=== PATIENT | female | born 1970 | race African-American/Black ===

== ENCOUNTER → 2017-08-23 | Outpatient (CLI) | payer OTHER ==
--- NOTE | 2017-08-23 17:32 | WOMENS IMAGING REPORT ---
EXAM DESCRIPTION: BILAT SCREENING MAMMO W/CAD COMPLETED DATE/TIME: 08/23/2017 10:38 am REASON FOR STUDY: SCREENING MAMMO Z12.31 ENCNTR SCREEN MAMMOGRAM FOR MALIGNANT NEOPLASM OF BAMBI COMPARISON: 2014 TECHNIQUE: Standard craniocaudal and mediolateral oblique views of each breast recorded using digita l acquisition. LIMITATIONS: None. FINDINGS: No masses, calcifications or architectural distortion. No areas of suspicion. Read with the assistance of CAD. .[facility] - R2 Cenova Version 1.3 .[facility] - R2 Cenova Version 1.3 .[facility] - R2 Cenova Version 2.4 .[facility] - R2 Cenova Version 2.4 .[facility] - R2 Chief Librarian Extension Department Version 9.2 IMPRESSION: NORMAL MAMMOGRAM. BIRADS 1. BREAST DENSITY: c. The breasts are heterogeneously dense, which may obscure small masses. BIRAD: 1 NEGATIVE RECOMMENDATION: ROUTINE SCREENING Please continue yearly bilateral screening mammography in August 2018. Because of heterogeneously dense tissue, please consider bilateral screening tomosynthesis. COMMENT: The patient has been notified of the results by letter per SA requirements. Additional no tification policies are in place for contacting patient with suspicious or incomplete findings. Quality ID #225: The [employer] recommends an annual screening mammogram for women aged 40 years or over. This facility utilizes a reminder system to ensure that all patients receive reminder letters, and/or direct phone calls for appointments. This includes reminders for routine scr eening mammograms, diagnostic mammograms, or other Breast Imaging Interventions when appropriate. Th is patient will be placed in the appropriate reminder system. The [employer] (ACR) has developed recommendations for screening MRI of the breast s in certain patient populations, to be used in conjunction with mammography. Breast MRI surveillanc e may be appropriate for women with more than 20% lifetime risk of developing breast cancer as deter mined by genetic testing, significant family history of the disease, or history of mantle radiation f or Hodgkins Disease. ACR Practice Guidelines 2008. TECHNICAL DOCUMENTATION: FINDING NUMBER: (1) ASSESSMENT: (1) JOB ID: [id number] [employer]- All Rights Reserved Reading location - IP/workstation name: [facility]
== END ==
LOC: WI 08:25
PROVIDERS: ATTEND Obstetrics & Gynecology Gynecology
DX: Z12.31 Encounter for screening mammogram for malignant neoplasm of breast (principal)
CPT/HCPCS: 77067

== ENCOUNTER → 2018-10-10 | Outpatient (CLI) | payer OTHER ==
--- NOTE | 2018-10-10 10:54 | WOMENS IMAGING REPORT ---
EXAM DESCRIPTION: BILAT SCREENING MAMMO W/CAD COMPLETED DATE/TIME: 10/10/2018 9:57 am REASON FOR STUDY: Z12.31 ROUTINE BILATERAL [id number] ENCNTR SCREEN MAMMOGRAM FOR MALIGNANT NE OPLASM OF BAMBI COMPARISON: 2014, 2017 EXAM PARAMETERS: Standard craniocaudal and mediolateral oblique views of each breast recorded using digital acquisition. Read with the assistance of CAD. .[facility] - Systems Integration Setup Technician Version 9.2 LIMITATIONS: None. FINDINGS: RIGHT BREAST MASSES: No suspicious masses. CALCIFICATIONS: No new or suspicious calcifications. ARCHITECTURAL DISTORTION: None. DEVELOPING DENSITY: Developing density upper outer quadrant. Posterior 3rd approximately 12 cm from the nipple ASYMMETRY: None noted. OTHER: No other significant findings. LEFT BREAST MASSES: No suspicious masses. CALCIFICATIONS: No new or suspicious calcifications. ARCHITECTURAL DISTORTION: None. DEVELOPING DENSITY: None. ASYMMETRY: None noted. OTHER: No other significant findings. IMPRESSION: Developing density in the right breast 0 Incomplete: Needs Additional Imaging Evaluation and/or prior Mammograms for Comparison. BREAST DENSITY: c. The breasts are heterogeneously dense, which may obscure small masses. BIRAD: ASSESSMENT: 0 Incomplete: Needs Additional Imaging Evaluation and/or prior Mammograms for C omparison. RECOMMENDATION: RECOMMENDED FOLLOW-UP: Spot compression with ultrasound if indicated. The patient will be contacted for additional imaging. COMMENT: The patient has been notified of the results by letter per SA requirements. Additional no tification policies are in place for contacting patient with suspicious or incomplete findings. Quality ID #225: The [employer] recommends an annual screening mammogram for women aged 40 years or over. This facility utilizes a reminder system to ensure that all patients receive reminder letters, and/or direct phone calls for appointments. This includes reminders for routine scr eening mammograms, diagnostic mammograms, or other Breast Imaging Interventions when appropriate. Th is patient will be placed in the appropriate reminder system. TECHNICAL DOCUMENTATION: FINDING NUMBER: (1) ASSESSMENT: (1) JOB ID: [id number] Spot compression with ultrasound if indicated. 2010 [employer]- All Rights Reserved Reading location - IP/workstation name: [email or web address]
== END ==
LOC: WI 09:42
PROVIDERS: ATTEND Specialist
DX: Z12.31 Encounter for screening mammogram for malignant neoplasm of breast (principal); R92.2 Inconclusive mammogram
CPT/HCPCS: 77067

== ENCOUNTER → 2018-10-24 | Outpatient (CLI) | payer OTHER ==
--- NOTE | 2018-10-24 12:22 | WOMENS IMAGING REPORT ---
EXAM DESCRIPTION: RIGHT DIAGNOSTIC MAMMO W/CAD; U/S BREAST UNILAT LIMITED COMPLETED DATE/TIME: 10/24/2018 10:31 am; 10/24/2018 11:09 am REASON FOR STUDY: N63.11 UNSPECIFIED LUMP IN THE RIGHT BREAST, UPPER OUTER QUADRANT; N63.11 RIGHT BR EAST COMPARISON: 10/10/2018. 2012. TECHNIQUE: Spot compression CC, XCC, MLO. Non spot compressed true lateral. Targeted right breast ultrasound. LIMITATIONS: None. FINDINGS: BREAST: Right MASSES: Upper outer quadrant ill-defined mass in the region of interest. Spot compression imaging sh ows persistent abnormality. See ultrasound. CALCIFICATIONS: No new or suspicious calcifications. ARCHITECTURAL DISTORTION: None. DEVELOPING DENSITY: None. ASYMMETRY: None noted. OTHER: No other significant findings. Ultrasound: At approximately 10- 11 o'clock 12 cm from the nipple there is a hypoechoic 1.7 cm rough ly ovoid but somewhat ill marginated mass with possible associated calcifications. No Doppler detect able blood flow, but the lesion has suspicious features. IMPRESSION: Lesion in the upper outer right breast quadrant has suspicious features. Recommend ultr asound-guided biopsy. BREAST DENSITY: Heterogeneous; 50-75% fibroglandular tissue. May lower sensitivity of mammography. BIRAD: 4 Suspicious. Needing intervention but with a low suspicion for malignancy. Biopsy should be performed in the absence of clinical contra-indication. COMMENT: PATIENT NOTIFIED BY LETTER. The [employer] (ACR) has developed recommendations for screening MRI of the breast s in certain patient populations, to be used in conjunction with mammography. Breast MRI surveillanc e may be appropriate for women with more than 20% lifetime risk of developing breast cancer as deter mined by genetic testing, significant family history of the disease, or history of mantle radiation f or Hodgkins Disease. ACR Practice Guidelines 2008. FINDING NUMBER: (1) Reading location - IP/workstation name: [email or web address]
== END ==
LOC: WI 10:08
PROVIDERS: ATTEND Specialist
DX: N63.11 Unspecified lump in the right breast, upper outer quadrant (principal)
CPT/HCPCS: 76642

== ENCOUNTER 2018-12-13 09:58 | Day surgery (SDC) | payer OTHER ==
[~2018-12-13 09:58] MED LIST: CEFAZOLIN 1 GM/D5W RTU 1 GM/50 ML RTUPB IV PRN
[2018-12-13] MEDS ORDERED: CEFAZOLIN 1 GM/D5W RTU 1 GM/50 ML RTUPB IV ONE (10:11)
[2018-12-13] MEDS ORDERED: MICROFIBRILLAR COLLAGEN 1 GM PACK ONE (10:26)
[2018-12-13] MEDS ORDERED: LIDOCAINE 1%/EPINEPHRINE INJ 20 ML VIAL ONE (10:26)
[2018-12-13] MEDS ORDERED: FENTANYL CITRATE INJ/PF 100 MCG/2 ML AMPUL ONE (10:36)
[2018-12-13] MEDS ORDERED: PROPOFOL INJ 200 MG/20 ML VIAL IV ONE (10:37)
[2018-12-13] MEDS ORDERED: MIDAZOLAM 2 MG/2 ML INJ ONE (10:37)
[2018-12-13 11:01] LABS: HEMATOCRIT 41.5 % (36.0-47.0); HEMOGLOBIN 13.8 g/dL (12.0-15.5); MEAN CORPUSCULAR HEMOGLOBIN 25.7 pg (27.0-33.4); MEAN CORPUSCULAR HGB CONC 33.2 g/dL (32.0-36.0); MEAN CORPUSCULAR VOLUME 77 fl (80-97); RED BLOOD COUNT 5.38 10^6/uL (3.72-5.28); RED CELL DISTRIBUTION WIDTH 14.8 % (11.5-14.0); WHITE BLOOD COUNT 7.2 10^3/uL (4.0-10.5)
[2018-12-13] MEDS ORDERED: KETOROLAC TROMETHAMINE 60 MG/2 ML SDV ONE (11:14)
[2018-12-13] MEDS ORDERED: SUCCINYLCHOLINE CHLORIDE INJ 200 MG/10 ML VIAL ONE (11:14)
[2018-12-13] MEDS ORDERED: ONDANSETRON HCL INJ/PF 4 MG/2 ML SDV ONE (11:14)
[2018-12-13] MEDS ORDERED: ROCURONIUM BROMIDE INJ 50 MG/5 ML VIAL IV ONE (11:14)
[2018-12-13 11:28] LABS: PLATELET COUNT 176 10^3/uL (150-450)
[2018-12-13] MEDS ORDERED: ONDANSETRON HCL INJ/PF 4 MG/2 ML SDV IV PRN (12:19)
[2018-12-13] MEDS ORDERED: DIPHENHYDRAMINE HCL 50 MG/ML VIAL IV PRN (12:19)
[2018-12-13] MEDS ORDERED: MEPERIDINE HCL/PF INJ 25 MG/1 ML DISP.SYRIN IV PRN (12:19)
[2018-12-13] MEDS ORDERED: MORPHINE SULFATE 10 MG/ML INJ IV PRN (12:19)
[2018-12-13] MEDS ORDERED: OXYCODONE-ACETAMINOPHEN 5-325 MG TABLET PO PRN ×3 (12:19→12:58)
[2018-12-13] MEDS ORDERED: FENTANYL CITRATE INJ/PF 100 MCG/2 ML AMPUL IV PRN ×3 (12:19)
[2018-12-13] MEDS ORDERED: PROMETHAZINE HCL INJ 25 MG/1 ML VIAL IV PRN (12:19)
--- NOTE | 2018-12-13 12:58 | Discharge Summary ---
Discharge Summary (SDC) - Discharge Final Diagnosis: Fibroadenoma Date of Surgery: 12/13/18 Discharge Date: 12/13/18 Condition: Good Treatment or Instructions: [facility] [address] [place] [address] Care Instructions Following Your Lumpectomy Activities: Resume normal activities when you feel comfortable. It is best to remain as active as possible to speed your recovery. It is common to experience some fatigue after surgery and you may find that short naps are helpful. Avoid strenuous activity such as weight lifting, tennis, etc at your surgical site for two weeks. Perform gentle arm exercises daily and do not favor your operative arm to due increased risk of mobility issues postoperatively. No driving for 7 days after surgery. Do not drive if you are taking pain medication other than Tylenol or Ibuprofen. No swimming, tub baths or soaking in a hot tub for 4 weeks. There are no dietary restrictions. Do not smoke as this impairs wound healing. Surgical Site care: You may shower 24 hours after surgery to include washing the wound with soap and water using your hands. Do not scrub the incision. Leave skin glue intact. Pat the area dry with a towel. You do not need to recover the wound although some patients find that they feel more comfortable using a light dressing for a few days to absorb any minimal drainage which may occur. Do not use heating pad or apply an ice pack to the operative site. You may apply deodorant if you are careful to avoid getting it on the wound itself. Medications: Take Toradol 10mg one pill by mouth every 6 hours as needed for pain. Do not take additional NSAIDs with the Toradol such as: ibuprofen, goodies powder, aleve. You may take Tylenol with the Toradol. Resume all of your normal prescription medications after your surgery unless instructed otherwise. Follow-up: Call our office at to make a follow-up appointment in 10-14 days. Your doctor will call to discuss the pathology report with you as soon as it is available. Concerns: Some bruising may occur and will go away over time. If you have a fever of 101.5 or greater, chills, redness at the incision site, excessive drainage from your wound or severe pain not relieved by pain medication, call your doctor. A physician is available 24 hours a day 7 days a week in addition to regular office hours. If problems arise after normal office hours please call the hospital at . Please call if you have any questions or concerns. Prescriptions: Ketorolac Tromethamine [Toradol 10 mg Tablet] 10 mg PO Q6HP PRN #20 tablet PRN Reason: Referrals: JAYJAY RO PA [Primary Care Provider] - Discharge Diet: As Tolerated Discharge Activity: Balance Activity w/Rest, No Lifting/Push/Pulling, Walk Frequently Report the Following to Your Physician Immediately: Nausea, Vomiting, Increase in Pain, Fever over 101 Degrees, Unusual Bleeding, Redness, Swelling, Warmth, Increased Soreness, Drainage-Foul Smelling
--- NOTE | 2018-12-13 12:58 | Operative Report ---
Operative Report DATE OF SURGERY: 12/13/18 PREOPERATIVE DIAGNOSIS: Fibroadenoma right breast status post core biopsy clip marker placement POSTOPERATIVE DIAGNOSIS: Same OPERATION: Ultrasound directed open excisional right breast biopsy SURGEON: HIRAM BHATIA 1ST ASSOCIATE COUNSEL: THOMAS WHITE ANESTHESIA: GA TISSUE REMOVED OR ALTERED: Fibroadenoma right breast COMPLICATIONS: 9 ESTIMATED BLOOD LOSS: none INTRAOPERATIVE FINDINGS: see below PROCEDURE: Patient was seen in the preop holding her with right breast was marked, then taken to the main operating room where general anesthesia was induced. Right arm was abducted, right breast and axilla prepped and draped sterile fashion with Betadine Surgical plan and surgical timeout were conducted. Real-time ultrasonography was used to confirm the location of the fibroadenoma approximately 1 1/2 cm diameter, deep aspect 10 o'clock position right breast, 11 cm from the nipple. Previously placed clip marker identified. Skin was anesthetized 1% plain lidocaine. Approximately 3-1/2 cm curvilinear incision was made with a knife, using ultrasound real-time guide, the fibroadenoma with a portion of surrounding breast tissue was excised primarily using electrocautery. Mass was removed from the right breast, with the clip marker on its surface. Ex vivo of the mass was scanned and the fibroadenoma was demonstrated. We cut into the tissue to confirm presence of fibroadenoma. The specimen including clip marker was placed in formalin and sent to pathology for permanent analysis We checked the biopsy cavity for bleeding there was none. Sponge and needle counts are correct. Wound closed with 0 Vicryl, Dermabond glue. Patient tolerated procedure well, extubated, and taken recovery in stable condition The physician events and promotions assistant, Ms. Barnes, provided assistance during this case by: Assisting and port insertion, retracting tissue, instillation of local anesthesia and closure of skin incisions.
[2018-12-13 15:39] VITALS: BP 110/67
== END 2018-12-13 15:00 | disposition home or self-care (01) ==
LOC: OROUT 09:58
PROVIDERS: ATTEND Surgery
DX: N63.10 Unspecified lump in the right breast, unspecified quadrant (principal); D24.1 Benign neoplasm of right breast; N60.21 Fibroadenosis of right breast; E07.9 Disorder of thyroid, unspecified; E66.9 Obesity, unspecified; I10 Essential (primary) hypertension; Z79.899 Other long term (current) drug therapy
CPT/HCPCS: 36415; 84132; 85027; 81025; 88305 ×2; 00400; 19101; J2250; J0690; J3490 ×2; J1885; J3010; J0330; J2405; J2704; 400